=== PATIENT | female | born 1980 | race Caucasian/White ===

== ENCOUNTER 2020-09-03 02:52 | Emergency (ER) | payer OTHER ==
[~2020-09-03] VITALS: Ht 170.2 cm; Wt 103.8 kg
[~2020-09-03 02:52] MED LIST: BACLOFEN 10MG T10 MG; BACLOFEN20 MG; CIPRO250 M1 PO; CIPROFLOXACIN500 M1 PO; DARVOCET-N 1001 EACH PO; FIORICET; HYDROCODON-ACE1 EAC7; IBUPROFEN 800800 MG PO; LEXAPRO 10 MG T10 MG PO; LO LOESTRIN FE1 EACH; LYRICA 50 MG50 M1 PO; LYRICA PO; LYRICA150 MG; MELOXICAM7.5 MG; NORCO 5-325 TA1 EACH PO; NORTRIPTYLINE H25 M3 PO; PERCOCET 5-3251 EACH PO; PYRIDIUM200 MG PO; TOPIRAMATE PO; TOPROL XL25 MG; TOPROL XL50 MG PO; TRAMADOL 50 MG50 MG PO; VALIUM5 MG PO; VICODIN 5-5001 EACH PO; ZANAFLEX2 M1 PO
[2020-09-03] MEDS ORDERED: BUSPIRONE HCL15 MG PO (03:01)
[2020-09-03] MEDS ORDERED: LEXAPRO 10 MG T10 M1 PO (03:01)
[2020-09-03 03:32] LABS: ABSOLUTE BASOPHILS 0.1 thou/uL (0.0-0.2); ABSOLUTE LYMPHOCYTES 2.3 thou/uL (0.8-5.3); ABSOLUTE MONOCYTES 1.2 thou/uL (0.0-1.2); ABSOLUTE NEUTROPHILS 9.4 thou/uL (1.6-8.1); BASOPHILS 0.7 %; EOSINOPHILS 0.1 %; HEMATOCRIT 47.2 % (37.0-47.0); HEMOGLOBIN 15.6 gm/dL (12.0-15.0); LYMPHOCYTES 17.9 %; MCH 28.5 pg (26.0-34.0); MCV 86.1 fL (80.0-100.0); MONOCYTES 9.2 %; MPV 10.7 fl. (7.2-11.1); NUCLEATED RBCS 0 /100WBC; PLATELET COUNT* 225 thou/uL (150-400); POLYS 72.1 %; RBC 5.48 mil/uL (4.20-5.00); RDW-CV 13.6 % (10.5-14.5)
[2020-09-03 03:44] LABS: CALCIUM 10.1 mg/dL (8.5-10.1); CREATININE 0.7 mg/dL (0.6-1.3)
[2020-09-03 03:46] LABS: POTASSIUM 2.8 mmol/L (3.5-5.1)
[2020-09-03 03:47] LABS: ALBUMIN 4.6 g/dL (3.4-5.0); MAGNESIUM 2.1 mg/dL (1.8-2.4); TOTAL BILIRUBIN 1.4 mg/dL (<0.1-1.0); TOTAL PROTEIN 8.7 g/dL (6.4-8.2)
[2020-09-03] MEDS ORDERED: PEPCID20 MG PO (05:28)
[2020-09-03] MEDS ORDERED: ZOFRAN ODT4 MG PO (05:28)
[2020-09-03] MEDS ORDERED: XANAX 0.5 MG0.5 M1 PO (05:28)
[2020-09-03 06:23] VITALS: BP 159/98
== END 2020-09-03 06:23 | disposition home or self-care (01) ==
LOC: M.ERS 02:52
PROVIDERS: Emergency Medicine
DX: F41.9 Anxiety disorder, unspecified (principal); E87.6 Hypokalemia; I10 Essential (primary) hypertension; F17.210 Nicotine dependence, cigarettes, uncomplicated; Z88.1 Allergy status to other antibiotic agents; Z88.2 Allergy status to sulfonamides; Z98.890 Other specified postprocedural states

== ENCOUNTER 2020-09-16 20:13 | Emergency (ER) | payer OTHER ==
[~2020-09-16] VITALS: Ht 170.2 cm; Wt 97.5 kg
[~2020-09-16 20:13] MED LIST changes: +BUSPIRONE HCL15 MG PO; +LEXAPRO 10 MG T10 M1 PO; +PEPCID20 MG PO; +XANAX 0.5 MG0.5 M1 PO; +ZOFRAN ODT4 MG PO
[2020-09-16 21:11] LABS: URINE BILIRUBIN NEGATIVE (Negative); URINE BLOOD TRACE (Negative); URINE CLARITY CLEAR; URINE COLOR YELLOW; URINE GLUCOSE-RANDOM NEGATIVE (Negative); URINE KETONES NEGATIVE (Negative); URINE LEUKOCYTES-REFLEX NEGATIVE (Negative); URINE NITRITE-REFLEX NEGATIVE (Negative); URINE PROTEIN NEGATIVE (Negative); URINE UROBILINOGEN 0.2 E.U./dl (0.2-1.0)
[2020-09-16 21:15] LABS: ABSOLUTE BASOPHILS 0.1 thou/uL (0.0-0.2); ABSOLUTE EOSINOPHILS 0.1 thou/uL (0.0-0.7); ABSOLUTE LYMPHOCYTES 2.1 thou/uL (0.8-5.3); ABSOLUTE MONOCYTES 1.2 thou/uL (0.0-1.2); ABSOLUTE NEUTROPHILS 8.2 thou/uL (1.6-8.1); BASOPHILS 0.8 %; EOSINOPHILS 0.5 %; HEMATOCRIT 44.3 % (37.0-47.0); HEMOGLOBIN 14.5 gm/dL (12.0-15.0); LYMPHOCYTES 17.6 %; MCH 28.8 pg (26.0-34.0); MCHC 32.7 g/dL (28.0-37.0); MCV 88.1 fL (80.0-100.0); MONOCYTES 10.5 %; MPV 10.4 fl. (7.2-11.1); NUCLEATED RBCS 0 /100WBC; PLATELET COUNT* 247 thou/uL (150-400); POLYS 70.6 %; RBC 5.03 mil/uL (4.20-5.00); RDW-CV 13.8 % (10.5-14.5); WBC 11.7 thou/uL (4.0-11.0)
[2020-09-16 21:21] LABS: AMP/METHAMP Negative (Negative); BARBITURATES Negative (Negative); BENZODIAZEPINES Negative (Negative); COCAINE Negative (Negative); METHADONE Negative (Negative); OPIATES Negative (Negative); PCP Negative (Negative); THC POSITIVE (Negative)
[2020-09-16 21:23] LABS: CALCIUM 9.3 mg/dL (8.5-10.1); CREATININE 0.8 mg/dL (0.6-1.3)
[2020-09-16 21:27] LABS: ALBUMIN 4.3 g/dL (3.4-5.0); TOTAL BILIRUBIN 1.1 mg/dL (<0.1-1.0)
[2020-09-16 21:36] LABS: ALCOHOL < 10 mg/dL (<10); SALICYLATE < 2.8 mg/dL (2.8-20.0)
[2020-09-16 21:37] LABS: ACETAMINOPHEN < 2 ug/mL (10-30)
[2020-09-22 07:17] VITALS: BP 117/78
== END 2020-09-22 07:20 ==
LOC: M.ERS 20:13
PROVIDERS: Emergency Medicine
DX: F31.12 Bipolar disorder, current episode manic without psychotic features, moderate (principal); Z20.822 Contact with and (suspected) exposure to COVID-19; F22 Delusional disorders; R45.851 Suicidal ideations; R45.850 Homicidal ideations; F17.210 Nicotine dependence, cigarettes, uncomplicated; Z88.1 Allergy status to other antibiotic agents; Z88.2 Allergy status to sulfonamides